=== PATIENT | female | born 1965 | race Caucasian/White ===

== ENCOUNTER → 2019-08-30 | Outpatient (CLI) | payer OTHER ==
[~2019-08-30] MED LIST: Megestrol Acetate PO
--- NOTE | 2019-08-30 13:42 | REP ---
Clinical: Acute bronchitis. Technique: PA and lateral. Findings: Bibasilar atelectasis (left greater than right). No obvious effusion. No pneumothorax. Mediastinum and cardiac silhouette are normal. Skeletal structures are intact. Impression: Bibasilar atelectasis. Electronically Signed by Yuri Brody MD 08/30/2019 01:34 P
== END ==
LOC: M ADAMS 13:20
PROVIDERS: ATTEND Physician Assistant Medical
DX: J20.9 Acute bronchitis, unspecified (principal)

== ENCOUNTER → 2021-07-18 | Outpatient (CLI) | payer OTHER ==
--- NOTE | 2021-07-18 12:23 | REPMRS ---
Patient History The patient states she had a clinical breast exam in February 2021. Patient is postmenopausal. Family history of pancreatic cancer at age 82 in father, colorectal cancer in paternal uncle. Took hormonal contraceptives for 5 years. Covid vaccines 10/2020 left arm. 10/2020 left arm. Patient states no breast complaints today. Patient has signed MRS History Sheet. Digital Woman Screen Mammo: July 18, 2021 - Exam #: [id number] Bilateral CC and MLO view(s) were taken. Technologist: RT Ramirez Prior study comparison: July 04, 2019, bilateral digital mammo screening bilat, performed at [facility]. September 15, 2017, bilateral digital mammo screening bilat, performed at [facility]. FINDINGS: The breast tissue is almost entirely fat. Screening. Digital screening (2D) mammography was performed bilaterally in the CC and MLO projections. Additionally, breast tomosynthesis (3D mammography) was performed bilaterally in the CC and MLO projections. Todays exam was compared to the prior exam/exams. By history, the patient has no complaints of a palpable breast abnormality or other significant breast complaints. The Volpara volumetric breast density category is A, the breasts are almost entirely fatty. The breasts are unchanged in size and shape. There are no jaime-soft tissue densities or spiculated masses. There is no internal architectural distortion. There are no suspicious jaime-calcific clusters. Skin thickening or nipple retraction is not present. IMPRESSION: BI-RADS Category 2- Benign Findings. There is no evidence of malignant alteration of the breasts. Followup examination recommended in one year. The lifetime Tyrer-Cuzick score is 6.3% This mammogram was read with the assistance of Courtney KahneZelleron,an FDA approved computer aided detection system for mammography. Negative x-ray reports should not delay surgical consultation if a dominant or clinically suspicious mass is present. Not all breast cancers can be identified by mammography. Therefore, we recommend that you continue to perform regular breast self-examination and physical examination and then promptly contact your physician of any concerns or changes. Adenosis and dense breasts may obscure an underlying neoplasm. No significant changes when compared with prior studies. Assessment: BI-RADS/ACR category 2 mammogram. Benign Findings. Recommendation Routine screening mammogram of both breasts in 1 year. Electronically Signed By: Blaise Ballard MD 07/18/21 1338
== END ==
LOC: M WHC 06:57
PROVIDERS: ATTEND Obstetrics & Gynecology
DX: Z12.31 Encounter for screening mammogram for malignant neoplasm of breast (principal); Z78.0 Asymptomatic menopausal state

== ENCOUNTER → 2023-01-19 | Outpatient (CLI) | payer OTHER, SELFPAY | LOC: M WHC 07:25 | PROVIDERS: ATTEND Nurse Practitioner Adult Health | DX: Z12.31 Encounter for screening mammogram for malignant neoplasm of breast (principal) ==

== ENCOUNTER 2023-04-22 14:10 | Inpatient (IN) | payer OTHER ==
[~2023-04-22] VITALS: Ht 177.8 cm; Wt 125.7 kg
[2023-04-22] MEDS ORDERED: fentaNYL 100 MCG/2 ML INJECTION IV ONE (17:50)
[2023-04-22] MEDS ORDERED: fentaNYL 100 MCG/2 ML INJECTION IV PRN (18:35)
[2023-04-22] MEDS ORDERED: MED REC IN PROGRESS XX SCH (19:00)
[2023-04-22 19:48] LABS: BASO % 0.3 % (0.0-1.0); EOS % 0.2 % (0.0-3.0); HEMATOCRIT 39.4 % (36.0-47.0); HEMOGLOBIN 13.1 g/dl (12.0-15.5); LYMPH # 1.2 10^3/uL (1.5-5.0); LYMPH % 9.6 % (24.0-44.0); MEAN CORPUSCULAR HEMOGLOBIN 28.7 pg (27.0-33.0); MEAN CORPUSCULAR HGB CONC 33.2 g/dl (32.0-36.5); MEAN CORPUSCULAR VOLUME 86.4 fl (80.0-96.0); MONO # 0.8 10^3/uL (0.0-0.8); MONO % 6.2 % (2.0-8.0); NEUTROPHILS # 10.2 10^3/uL (1.5-8.5); NEUTROPHILS % 83.3 % (36.0-66.0); PLATELET COUNT, AUTOMATED 253 10^3/uL (150-450); RED BLOOD COUNT 4.56 10^6/uL (4.00-5.40); WHITE BLOOD COUNT 12.2 10^3/uL (4.0-10.0)
[2023-04-22 20:00] LABS: INR 1.11; PARTIAL THROMBOPLASTIN TIME 28.5 SECONDS (24.8-34.2)
[2023-04-22 20:16] LABS: BLOOD UREA NITROGEN 10 MG/DL (9-23); CARBON DIOXIDE LEVEL 26 MMOL/L (20-31); CHLORIDE LEVEL 105 MMOL/L (98-107); CREATININE FOR GFR 0.74 MG/DL (0.55-1.30); GLOMERULAR FILTRATION RATE > 60.0 (>51); GLUCOSE, FASTING 139 MG/DL (60-100); POTASSIUM SERUM 4.2 MMOL/L (3.5-5.1); SODIUM LEVEL 139 MMOL/L (136-145)
[2023-04-22 20:20] LABS: RSV AMPLIFICATION NEGATIVE (NEGATIVE)
[2023-04-22] MEDS: KETOROLAC 30 MG/ML 1ML VIAL IV SCH (20:57)
[2023-04-22] MEDS ORDERED: SENOKOT S TAB PO SCH (21:00)
[2023-04-22] MEDS: oxyCODONE 5MG TAB PO PRN (21:04)
[2023-04-22 22:24] VITALS: BP 136/71; TEMP 98.2; O2SAT 95
[2023-04-23] VITALS (8 sets, daily range): BP systolic 112–137; BP diastolic 55–82; TEMP 96.4–98.4; O2SAT 84–99
[2023-04-23] MEDS ORDERED: HOME MED LIST COMPLETE! XX SCH (00:25)
[2023-04-23] MEDS: KETOROLAC 30 MG/ML 1ML VIAL IV SCH ×2 (00:30→06:58)
[2023-04-23] MEDS: D5W/0.45% SODIUM CHLORIDE 1,000 ML IV SCH ×3 (00:30→21:31)
[2023-04-23] MEDS: oxyCODONE 5MG TAB PO PRN ×3 (03:04→21:37)
[2023-04-23 06:30] LABS: HEMATOCRIT 37.2 % (36.0-47.0); HEMOGLOBIN 12.2 g/dl (12.0-15.5); MEAN CORPUSCULAR HEMOGLOBIN 28.3 pg (27.0-33.0); MEAN CORPUSCULAR HGB CONC 32.8 g/dl (32.0-36.5); MEAN CORPUSCULAR VOLUME 86.3 fl (80.0-96.0); PLATELET COUNT, AUTOMATED 230 10^3/uL (150-450); RED BLOOD COUNT 4.31 10^6/uL (4.00-5.40); WHITE BLOOD COUNT 9.8 10^3/uL (4.0-10.0)
[2023-04-23 06:50] LABS: BLOOD UREA NITROGEN 9 MG/DL (9-23); CALCIUM LEVEL 8.6 MG/DL (8.5-10.1); CARBON DIOXIDE LEVEL 29 MMOL/L (20-31); CHLORIDE LEVEL 104 MMOL/L (98-107); CREATININE FOR GFR 0.76 MG/DL (0.55-1.30); GLOMERULAR FILTRATION RATE > 60.0 (>51); GLUCOSE, FASTING 117 MG/DL (60-100); POTASSIUM SERUM 3.9 MMOL/L (3.5-5.1); SODIUM LEVEL 139 MMOL/L (136-145)
[2023-04-23] MEDS: SENOKOT S TAB PO SCH ×2 (09:29→21:30)
[2023-04-23] MEDS: HEPARIN SOD (PORCINE) 5000UNITS/ML 1ML VIAL/SYRINGE SQ SCH ×2 (09:32→21:30)
[2023-04-23] MEDS ORDERED: HYDROMORPHONE HCL 0.5 MG/ 0.5 ML SYRINGE IV ONE (11:00)
[2023-04-23] MEDS: KETOROLAC 30 MG/ML 1ML VIAL IV PRN (12:50)
[2023-04-23] MEDS ORDERED: ceFAZolin 1GM VIAL As Ordered ONE (17:22)
[2023-04-23] MEDS ORDERED: propofoL 200 MG/20 ML VIAL As Ordered ONE ×4 (18:00→19:12)
[2023-04-23] MEDS ORDERED: MIDAZOLAM INJ 2MG/2ML VIAL As Ordered ONE (18:00)
[2023-04-23] MEDS ORDERED: fentaNYL 100 MCG/2 ML INJECTION As Ordered ONE (18:00)
[2023-04-23] MEDS ORDERED: ceFAZolin 2 GM/D5W 50 ML IV BAG As Ordered ONE (18:09)
[2023-04-23] MEDS ORDERED: HYDROMORPHONE HCL 0.5 MG/ 0.5 ML SYRINGE IV PRN (19:25)
[2023-04-23] MEDS ORDERED: fentaNYL 100 MCG/2 ML INJECTION IV PRN (19:25)
[2023-04-23] MEDS ORDERED: oxyCODONE 5MG TAB PO PRN (19:25)
[2023-04-23] MEDS ORDERED: LR 1,000 ML IV SCH (19:25)
[2023-04-23] MEDS ORDERED: ONDANSETRON 4MG 2ML VIAL IV PRN (19:25)
[2023-04-23] MEDS ORDERED: diphenhydrAMINE 50MG/ML VIAL IV ONE (21:05)
[2023-04-23] MEDS: ACETAMINOPHEN TAB 650MG DOSE (2X325MG) PO PRN (21:32)
[2023-04-24] MEDS: KETOROLAC 30 MG/ML 1ML VIAL IV PRN ×3 (01:52→20:10)
[2023-04-24 03:00] VITALS: BP 120/60; TEMP 97.3; O2SAT 96
[2023-04-24 06:14] VITALS: BP 128/77; TEMP 97.8; O2SAT 97
[2023-04-24] MEDS ORDERED: oxyCODONE 5MG TAB PO ONE (08:00)
[2023-04-24] MEDS: HEPARIN SOD (PORCINE) 5000UNITS/ML 1ML VIAL/SYRINGE SQ SCH ×2 (08:34→20:09)
[2023-04-24] MEDS: SENOKOT S TAB PO SCH ×2 (08:35→20:09)
[2023-04-24 10:53] VITALS: BP 115/65; TEMP 97.8; O2SAT 94
[2023-04-24] MEDS: D5W/0.45% SODIUM CHLORIDE 1,000 ML IV SCH (11:08)
[2023-04-24 14:04] VITALS: BP 133/63; TEMP 97.2; O2SAT 92
[2023-04-24] MEDS: oxyCODONE 5MG TAB PO PRN (17:27)
[2023-04-24 18:00] VITALS: BP 130/72; TEMP 97.3; O2SAT 96
[2023-04-24 19:49] VITALS: BP 138/65; TEMP 97.7; O2SAT 94
[2023-04-25] MEDS: oxyCODONE 5MG TAB PO PRN ×3 (02:35→21:14)
[2023-04-25] MEDS: KETOROLAC 30 MG/ML 1ML VIAL IV PRN (03:11)
[2023-04-25] MEDS: D5W/0.45% SODIUM CHLORIDE 1,000 ML IV SCH (05:27)
[2023-04-25 05:37] VITALS: BP 131/65; TEMP 97.6; O2SAT 98
[2023-04-25] MEDS ORDERED: IBUPROFEN 200MG TAB PO SCH (08:00)
[2023-04-25] MEDS ORDERED: MOM 30ML SUSPENSION UDC PO PRN (08:00)
[2023-04-25] MEDS ORDERED: ENOXAPARIN 40MG/0.4ML SYRINGE (J1650 PER 10MG) SC ONE (08:05)
[2023-04-25 08:36] LABS: BASO % 0.5 % (0.0-1.0); EOS # 0.4 10^3/uL (0.0-0.5); EOS % 4.5 % (0.0-3.0); HEMATOCRIT 36.7 % (36.0-47.0); HEMOGLOBIN 11.9 g/dl (12.0-15.5); LYMPH # 2.1 10^3/uL (1.5-5.0); LYMPH % 26.1 % (24.0-44.0); MEAN CORPUSCULAR HEMOGLOBIN 28.3 pg (27.0-33.0); MEAN CORPUSCULAR HGB CONC 32.4 g/dl (32.0-36.5); MEAN CORPUSCULAR VOLUME 87.4 fl (80.0-96.0); MONO # 0.8 10^3/uL (0.0-0.8); MONO % 10.2 % (2.0-8.0); NEUTROPHILS # 4.6 10^3/uL (1.5-8.5); NEUTROPHILS % 58.4 % (36.0-66.0); PLATELET COUNT, AUTOMATED 197 10^3/uL (150-450); WHITE BLOOD COUNT 7.9 10^3/uL (4.0-10.0)
[2023-04-25] MEDS: HEPARIN SOD (PORCINE) 5000UNITS/ML 1ML VIAL/SYRINGE SQ SCH ×2 (09:00→21:14)
[2023-04-25 09:13] LABS: BLOOD UREA NITROGEN 10 MG/DL (9-23); CALCIUM LEVEL 8.3 MG/DL (8.5-10.1); CARBON DIOXIDE LEVEL 28 MMOL/L (20-31); CHLORIDE LEVEL 107 MMOL/L (98-107); CREATININE FOR GFR 0.69 MG/DL (0.55-1.30); GLOMERULAR FILTRATION RATE > 60.0 (>51); GLUCOSE, FASTING 92 MG/DL (60-100); POTASSIUM SERUM 4.4 MMOL/L (3.5-5.1); SODIUM LEVEL 139 MMOL/L (136-145)
[2023-04-25] MEDS: ACETAMINOPHEN TAB 650MG DOSE (2X325MG) PO PRN (09:38)
[2023-04-25] MEDS: SENOKOT S TAB PO SCH ×2 (09:39→21:13)
[2023-04-25] MEDS: ENOXAPARIN 40MG/0.4ML SYRINGE (J1650 PER 10MG) SC SCH (09:43)
[2023-04-25] MEDS: IBUPROFEN 400MG TAB PO SCH ×3 (09:43→18:32)
[2023-04-25 14:00] VITALS: BP 95/51; TEMP 97.1; O2SAT 99
[2023-04-26] MEDS: ACETAMINOPHEN TAB 650MG DOSE (2X325MG) PO PRN ×2 (00:10→09:52)
[2023-04-26 05:42] VITALS: BP 128/65; TEMP 97.5; O2SAT 96
[2023-04-26] MEDS: oxyCODONE 5MG TAB PO PRN ×2 (05:52→20:25)
[2023-04-26] MEDS: HEPARIN SOD (PORCINE) 5000UNITS/ML 1ML VIAL/SYRINGE SQ SCH (09:00)
[2023-04-26] MEDS: IBUPROFEN 400MG TAB PO SCH ×3 (09:51→17:56)
[2023-04-26] MEDS: SENOKOT S TAB PO SCH ×2 (09:52→20:24)
[2023-04-26] MEDS: ENOXAPARIN 40MG/0.4ML SYRINGE (J1650 PER 10MG) SC SCH (09:53)
[2023-04-26 20:23] VITALS: BP 134/65; TEMP 97.6; O2SAT 94
[2023-04-27] MEDS: oxyCODONE 5MG TAB PO PRN (03:02)
[2023-04-27 05:09] VITALS: BP 141/77; TEMP 97.8; O2SAT 94
[2023-04-27] MEDS: SENOKOT S TAB PO SCH ×2 (08:06→21:00)
[2023-04-27] MEDS: ENOXAPARIN 40MG/0.4ML SYRINGE (J1650 PER 10MG) SC SCH (08:07)
[2023-04-27] MEDS: IBUPROFEN 400MG TAB PO SCH ×3 (08:07→17:30)
[2023-04-27 08:12] LABS: HEMATOCRIT 34.5 % (36.0-47.0); HEMOGLOBIN 11.4 g/dl (12.0-15.5); MEAN CORPUSCULAR HEMOGLOBIN 28.6 pg (27.0-33.0); MEAN CORPUSCULAR VOLUME 86.7 fl (80.0-96.0); PLATELET COUNT, AUTOMATED 208 10^3/uL (150-450); RED BLOOD COUNT 3.98 10^6/uL (4.00-5.40)
[2023-04-27 08:36] LABS: BLOOD UREA NITROGEN 12 MG/DL (9-23); CALCIUM LEVEL 8.2 MG/DL (8.5-10.1); CARBON DIOXIDE LEVEL 25 MMOL/L (20-31); CHLORIDE LEVEL 106 MMOL/L (98-107); CREATININE FOR GFR 0.69 MG/DL (0.55-1.30); GLOMERULAR FILTRATION RATE > 60.0 (>51); GLUCOSE, FASTING 102 MG/DL (60-100); SODIUM LEVEL 138 MMOL/L (136-145)
[2023-04-27] MEDS: ACETAMINOPHEN TAB 650MG DOSE (2X325MG) PO PRN (23:11)
[2023-04-28 05:15] VITALS: BP 128/80; TEMP 98; O2SAT 96
[2023-04-28] MEDS: ACETAMINOPHEN TAB 650MG DOSE (2X325MG) PO PRN (06:17)
[2023-04-28] MEDS: ENOXAPARIN 40MG/0.4ML SYRINGE (J1650 PER 10MG) SC SCH (08:43)
[2023-04-28] MEDS: IBUPROFEN 400MG TAB PO SCH ×2 (08:43→12:30)
[2023-04-28] MEDS: SENOKOT S TAB PO SCH (08:44)
[2023-04-28 14:00] VITALS: BP 106/58; TEMP 97.7; O2SAT 94
[2023-04-28] MEDS ORDERED: IBUP-1114 PO (14:44)
[2023-04-28] MEDS ORDERED: ASPI-1 PO ×2 (14:44→14:50)
[2023-04-28] MEDS ORDERED: ACET1TAB55 PO (14:44)
== END 2023-04-28 16:10 | disposition home or self-care (01) | DRG 309 ==
LOC: M ED 14:10 → M ED INP 19:44 → M PED 22:30 → M MS4PR 04-23 20:25
PROVIDERS: ADMIT Internal Medicine Nephrology; ATTEND Student in an Organized Health Care Education/Training Program
PROC: 0QSC35Z Reposition Left Lower Femur with External Fixation Device, Percutaneous Approach (ICD-10-PCS; 2023-04-23)
PROC: 0SS Lower Joints, Reposition (ICD-10-PCS; 2023-04-23)
PROC: 0QSH35Z Reposition Left Tibia with External Fixation Device, Percutaneous Approach (ICD-10-PCS; principal; 2023-04-23 19:00)
DX: S82.142A Displaced bicondylar fracture of left tibia, initial encounter for closed fracture (principal); E66.9 Obesity, unspecified; W11.XXXA Fall on and from ladder, initial encounter; Y92.009 Unspecified place in unspecified non-institutional (private) residence as the place of occurrence of the external cause; K21.9 Gastro-esophageal reflux disease without esophagitis; Z90.49 Acquired absence of other specified parts of digestive tract; Z87.891 Personal history of nicotine dependence; Z20.822 Contact with and (suspected) exposure to COVID-19; Z68.37 Body mass index [BMI] 37.0-37.9, adult

== ENCOUNTER → 2023-04-30 | Outpatient (CLI) | payer OTHER ==
[~2023-04-30] MED LIST changes: +ACET1TAB55 PO; +ASPI-1 PO; +IBUP-1114 PO
== END ==
LOC: M SOG 11:57
PROVIDERS: ATTEND Physician Assistant
DX: S82.142D Displaced bicondylar fracture of left tibia, subsequent encounter for closed fracture with routine healing (principal)

== ENCOUNTER → 2024-05-20 | Outpatient (CLI) | payer OTHER, SELFPAY | LOC: M WHC 09:14 | PROVIDERS: ATTEND Nurse Practitioner Adult Health | DX: Z12.31 Encounter for screening mammogram for malignant neoplasm of breast (principal) ==

== ENCOUNTER → 2025-06-01 | Outpatient (CLI) | payer OTHER | LOC: M WHC 07:56 | PROVIDERS: ATTEND Nurse Practitioner Adult Health | DX: Z12.31 Encounter for screening mammogram for malignant neoplasm of breast (principal); R92.313 Mammographic fatty tissue density, bilateral breasts ==